=== PATIENT | female | born 1945 | race Native Hawaiian/Other Pacific Islander ===

== ENCOUNTER 2019-01-14 19:11 | Inpatient (IN) | payer BC, OTHER ==
[~2019-01-14] VITALS: Ht 160 cm; Wt 88.2 kg
[2019-01-14 19:48] VITALS: BP 128/79; TEMP 98.1
[2019-01-14 20:40] LABS: PLATELET COUNT 257 K/uL (152-353)
[2019-01-14 20:42] LABS: POTASSIUM 3.9 mmol/L (3.6-5.2)
[2019-01-14 20:52] LABS: PARTIAL THROMBOPLASTIN TIME 23.1 SECONDS (24.5-33.6)
[2019-01-15 00:22] VITALS: BP 125/59; TEMP 97.7; Ht 160 cm; Wt 88.2 kg
[2019-01-15 04:00] VITALS: BP 118/57; TEMP 98.7
[2019-01-15 08:00] VITALS: BP 132/69; TEMP 98.4
[2019-01-15 12:00] VITALS: BP 123/82; TEMP 98.7
[2019-01-15 16:00] VITALS: BP 112/56; TEMP 97.6
[2019-01-15 20:00] VITALS: BP 128/62; TEMP 98.8
[2019-01-16] VITALS: BP 133/67; TEMP 98.5
[2019-01-16 04:00] VITALS: BP 128/39; TEMP 98.6
[2019-01-16 05:46] LABS: PLATELET COUNT 173 K/uL (152-353)
[2019-01-16 05:58] LABS: POTASSIUM 3.9 mmol/L (3.6-5.2)
[2019-01-16 08:00] VITALS: BP 135/62; TEMP 98.9
[2019-01-16 12:00] VITALS: BP 119/56; TEMP 98.4
[2019-01-16 16:00] VITALS: BP 145/70; TEMP 98.8
[2019-01-16 20:00] VITALS: BP 139/61; TEMP 98.4
[2019-01-17] VITALS: BP 146/72; TEMP 98.4
[2019-01-17 04:00] VITALS: BP 140/62; TEMP 98.2
[2019-01-17 08:00] VITALS: BP 134/58; TEMP 98.1
[2019-01-17 11:29] LABS: PLATELET COUNT 206 K/uL (152-353)
[2019-01-17 12:00] VITALS: BP 142/62; TEMP 98.1
[2019-01-17 12:09] LABS: POTASSIUM 4.2 mmol/L (3.6-5.2)
== END 2019-01-17 14:50 | disposition home or self-care (01) | DRG 690 ==
LOC: ED 19:11 → MED/SURG 23:20
PROVIDERS: Family Medicine; Student in an Organized Health Care Education/Training Program; ADMIT Internal Medicine
DX: N10 Acute pyelonephritis (principal); E46 Unspecified protein-calorie malnutrition; E11.22 Type 2 diabetes mellitus with diabetic chronic kidney disease; I12.9 Hypertensive chronic kidney disease with stage 1 through stage 4 chronic kidney disease, or unspecified chronic kidney disease; N18.3 Chronic kidney disease, stage 3 (moderate); N17.8 Other acute kidney failure; E86.0 Dehydration; D63.8 Anemia in other chronic diseases classified elsewhere; Z72.0 Tobacco use
CPT/HCPCS: 36415; 80048; 80053; 81000; 83605; 85027; 85610; 85730; 87040; 87077; 87086; 87088; 87186; 93005; 96360; 96365; 96366; 96372; 96375; 99284; J0744; J1170; J1650; J2405; J2543; J3490

== ENCOUNTER 2019-01-29 11:52 | Outpatient (CLI) | payer BC, OTHER | END 2019-01-29 23:59 | disposition home or self-care (01) | LOC: LAB 11:52 | DX: E11.9 Type 2 diabetes mellitus without complications (principal); N30.91 Cystitis, unspecified with hematuria | CPT/HCPCS: 81000; 83036; 87086; 87088 ==

== ENCOUNTER 2019-02-18 16:23 | Outpatient (CLI) | payer BC, OTHER | END 2019-02-18 20:09 | disposition home or self-care (01) | LOC: LAB 16:23 | DX: N18.3 Chronic kidney disease, stage 3 (moderate) (principal) | CPT/HCPCS: 82043; 82570 ==